=== PATIENT | female | born 1965 | race African-American/Black ===

== ENCOUNTER 2017-02-23 10:38 | Emergency (ER) | payer OTHER ==
[~2017-02-23] VITALS: Ht 167.6 cm; Wt 117.7 kg
[2017-02-23] MEDS ORDERED: RISP4 PO ×2 (10:49)
[2017-02-23] MEDS ORDERED: FERR-89 PO (10:49)
[2017-02-23] MEDS ORDERED: METF500T4 PO (10:49)
[2017-02-23] MEDS ORDERED: ATOR40TA28 PO (10:49)
[2017-02-23] MEDS ORDERED: DIPH50 PO (10:49)
[2017-02-23] MEDS ORDERED: QUET200T PO (10:49)
[2017-02-23] MEDS ORDERED: METO50 PO (10:49)
[2017-02-23 10:52] LABS: GLUCOSE,POINT OF CARE 117 MG/DL (70-110)
[2017-02-23 11:08] VITALS: BP 135/85
[2017-02-23] MEDS ORDERED: HYDROCODONE/ACETAMINOPHEN 5-325 MG TABLET PO ONE (11:45)
== END 2017-02-23 12:49 | disposition home or self-care (01) ==
LOC: EMS 10:44
DX: S83.91XA Sprain of unspecified site of right knee, initial encounter (principal); M17.11 Unilateral primary osteoarthritis, right knee; E11.9 Type 2 diabetes mellitus without complications; E78.00 Pure hypercholesterolemia, unspecified; X50.9XXA Other and unspecified overexertion or strenuous movements or postures, initial encounter; Y93.89 Activity, other specified; Y92.89 Other specified places as the place of occurrence of the external cause; Y99.8 Other external cause status
CPT/HCPCS: 82962; 99284